=== PATIENT | male | born 1975 | race Asian ===

== ENCOUNTER 2016-07-09 10:42 | Emergency (ER) | payer OTHER ==
--- NOTE | 2016-07-09 10:50 | PDOC ---
Attending Attestation - Resident Resident Name: Bala Jiménez - ED Attending Attestation I have performed the following: I have examined & evaluated the patient, The case was reviewed & discussed with the resident, I agree w/resident's findings & plan, Exceptions are as noted - HPI HPI: 07/09/16 11:09 The patient is a 40 year old male with a significant past medical history of ASA who presents with "cold symptoms" including rhinorrhea, sneezing and coughing for the past 5 days. Today he saw some streaks of blood in yellow mucous. He denies fever, weight loss, night sweats. The patient denies recent travel/surgeries/immobility, lower extremity edema, calf pain or tenderness, tobacco use, hormone use, personal or family history of thrombosis. 07/09/16 12:05 - Physicial Exam PE: 07/09/16 11:11 He is well appearing Lungs clear to auscultation bilaterally - Medical Decision Making 07/09/16 11:11 Will obtain PA/Lateral CXR 07/09/16 11:56 Chest x-ray emergency Department interpretation: No acute cardiopulmonary disease Clinical impression: Bronchitis Cough I discussed the physical exam findings, ancillary test results and final diagnoses with the patient. I answered all of the patient's questions. The patient was satisfied with the care received and felt comfortable with the discharge plan and treatment plan. The patient will call their primary care physician within 24 hours to arrange follow-up and will return to the Emergency Department with any new, persistent or worsening symptoms. Discharge Disposition - Diagnosis Cough - Discharge Dispostion Disposition: HOME Condition at time of disposition: Good Last Admission D/C Date: 08/02/03 - Prescriptions Prescriptions: Loratadine [Claritin -] 10 mg PO DAILY #7 tablet Benzonatate [Tessalon Pearls -] 100 mg PO TID PRN #21 capsule PRN Reason: Cough - Referrals Referrals: Nicolas Camilo [Primary Care Provider] - - Patient Instructions Printed Discharge Instructions: DI for Cough -- Adult Additional Instructions: Return to the emergency department immediately with ANY new, persistent or worsening symptoms. You MUST call and follow up with your doctor tomorrow. Please make sure your doctor reviews the results of your emergency department evaluation. - Post Discharge Activity Work/School Note: Back to Work
[2016-07-09 11:00] VITALS: TEMP 98.1; BMI 35.0
[2016-07-09 11:16] VITALS: BP 155/106; PULSE 89
== END 2016-07-09 12:04 | disposition home or self-care (01) ==
LOC: FER 10:42
DX: R05 Cough (principal)
CPT/HCPCS: 71020-TC; 99281-25

== ENCOUNTER 2016-09-29 19:09 | Emergency (ER) | payer OTHER ==
[2016-09-29 19:17] VITALS: BP 156/107; PULSE 100; TEMP 98.1; BMI 35.9
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
[2016-09-29] MEDS ORDERED: IBUPROFEN 600 MG TABLET (FP) PO ONE ×2 (19:22)
== END 2016-09-29 20:03 | disposition home or self-care (01) ==
LOC: FER 19:09
DX: S93.401A Sprain of unspecified ligament of right ankle, initial encounter (principal); V92.13XA Drowning and submersion due to being thrown overboard by motion of other powered watercraft, initial encounter; Y93.89 Activity, other specified; Y92.89 Other specified places as the place of occurrence of the external cause; Z87.891 Personal history of nicotine dependence
CPT/HCPCS: 73610-TC-RT; 99282-25

== ENCOUNTER 2022-05-25 09:23 | Emergency (ER) | payer OTHER ==
[2022-05-25 09:42] VITALS: BP 125/89; PULSE 84; RESP 18; TEMP 98.5; BMI 37.8
[2022-05-25] MEDS ORDERED: ACETAMINOPHEN 1000 MG/100 ML BAG IVPB ONE (09:47)
[2022-05-25] MEDS ORDERED: SODIUM CHLORIDE 1,000 ML IV STA (09:47)
[2022-05-25] MEDS ORDERED: ACETAMINOPHEN INJECTION 100 ML IVPB ONE (09:52)
[2022-05-25 10:23] LABS: HEMATOCRIT 36.7 % (35.4-49); HEMOGLOBIN 13.1 G/dL (11.7-16.9); MCHC 35.8 g/dl (32.0-35.9); MEAN CELL VOLUME 78.1 fl (80-96); MEAN PLT VOLUME 8.4 fl (7.5-11.1); PLATELET COUNT 146.2 10^3/uL (134-434); RDW 14.4 % (11.9-15.9); WHITE BLOOD COUNT 6.8 10^3/uL (4.0-10.8)
[2022-05-25 10:32] LABS: ALBUMIN 3.9 g/dl (3.4-5.0); BILIRUBIN,TOTAL 0.7 mg/dl (0.2-1); CREATININE 0.8 mg/dl (0.55-1.3); PLATELET ESTIMATE ADEQUATE; TOT PROT 6.7 g/dl (6.4-8.2)
[2022-05-25] MEDS ORDERED: KETOROLAC TROMETHAMINE 15 MG/ML VIAL IVPUSH ONE (11:41)
[2022-05-25] MEDS ORDERED: KETOROLAC TROMETHAMINE 15 MG/ML VIAL ONE (11:44)
== END 2022-05-25 12:44 | disposition home or self-care (01) ==
LOC: FER 09:23
PROC: 3E033NZ Introduction of Analgesics, Hypnotics, Sedatives into Peripheral Vein, Percutaneous Approach (ICD-10-PCS; principal; 2022-05-25)
PROC: 3E0333Z Introduction of Anti-inflammatory into Peripheral Vein, Percutaneous Approach (ICD-10-PCS; 2022-05-25)
DX: R10.31 Right lower quadrant pain (principal)
CPT/HCPCS: 36415; 74176-TC; 80053; 81003; 85027; 99284-25